=== PATIENT | female | born 1955 | race Caucasian/White ===

== ENCOUNTER 2023-09-25 13:08 | Inpatient (IN) | payer MEDICARE, OTHER ==
[~2023-09-25] VITALS: Ht 165.1 cm; Wt 72.7 kg
[2023-09-25] VITALS (13 sets, daily range): BP systolic 90–174; BP diastolic 45–78; TEMP 98; O2SAT 84–98
[2023-09-25 14:15] LABS: HEMATOCRIT 32.2 % (36.0-47.0); HEMOGLOBIN 10.6 g/dl (12.0-15.5); MEAN CORPUSCULAR HEMOGLOBIN 36.2 pg (27.0-33.0); MEAN CORPUSCULAR HGB CONC 32.9 g/dl (32.0-36.5); MEAN CORPUSCULAR VOLUME 109.9 fl (80.0-96.0); PLATELET COUNT, AUTOMATED 102 10^3/uL (150-450); RED BLOOD COUNT 2.93 10^6/uL (4.00-5.40); WHITE BLOOD COUNT 12.7 10^3/uL (4.0-10.0)
[2023-09-25] MEDS: ACETAMINOPHEN 325 MG TAB PO ONE (14:15)
[2023-09-25 14:28] LABS: ALBUMIN 2.7 G/DL (3.2-5.2); ALKALINE PHOSPHATASE 134 U/L (46-116); ALT/SGPT 25 U/L (7.0-40); AST/SGOT 26 U/L (<34); BILIRUBIN,DIRECT 2.8 MG/DL (<0.4); BILIRUBIN,TOTAL 4.5 MG/DL (0.3-1.2); BLOOD UREA NITROGEN 20 MG/DL (9-23); CALCIUM LEVEL 7.9 MG/DL (8.3-10.6); CARBON DIOXIDE LEVEL 25 MMOL/L (20-31); CHLORIDE LEVEL 106 MMOL/L (98-107); GLOMERULAR FILTRATION RATE > 60.0 (>39); GLUCOSE, FASTING 94 MG/DL (74-106); POTASSIUM SERUM 3.4 MMOL/L (3.5-5.1); SODIUM LEVEL 137 MMOL/L (136-145); TOTAL PROTEIN 5.3 G/DL (5.7-8.2)
[2023-09-25 14:31] LABS: THYROID STIMULATING HORMONE 0.208 uIU/ML (0.55-4.78)
[2023-09-25 14:35] LABS: PROCALCITONIN 0.69 ng/ml
[2023-09-25 14:46] LABS: ATYPICAL LYMPH 2 % (0-5); BASOPHILS 1 % (0-1); LYMPHOCYTES 4 % (16-44); METAMYELOCYTES 2 % (0-0); MONOCYTES 8 % (0-5); MYELOCYTES 1 % (0-0); NEUTROPHILS 72 % (28-66)
[2023-09-25 14:48] LABS: ANISOCYTOSIS 1+
[2023-09-25 14:49] LABS: PLATELET ESTIMATE DECREASED (NORMAL)
[2023-09-25] MEDS ORDERED: ISOVUE-370 76% 100ML VIAL As Ordered ONE (14:50)
[2023-09-25] MEDS: NS 2,240 ML in IV 1 EA IV ONE (15:36)
[2023-09-25] MEDS: cefTRIAXone SOD 2 GM in D5W MINI-BAG PLUS 50 ML IV ONE (15:36)
[2023-09-25] MEDS: PIPERACILLIN/TAZOBACTAM SOD 4.5 GM in D5W MINI-BAG PLUS 50 ML IV ONE (16:28)
[2023-09-25] MEDS: GASTROGRAFIN SOLUTION 30ML PO SCH (17:07)
[2023-09-25] MEDS: HYDROCORTISONE 100MG/2ML VIAL IV ONE (18:53)
[2023-09-25] MEDS: NOREPINEPHRINE 4MG IN D5 250ML 4 MG in IV 1 EA IV SCH (19:00)
[2023-09-25] MEDS: POTASSIUM CHLORIDE 10MEQ SR TABLET PO ONE ×2 (20:28→21:28)
[2023-09-25] MEDS: LR 1,000 ML IV SCH (20:28)
[2023-09-25] MEDS ORDERED: APIXABAN 5 MG TAB (ELIQUIS) PO SCH (21:00)
[2023-09-25] MEDS: ENOXAPARIN 80MG/0.8ML SYRINGE (J1650 PER 10MG) SC ONE (21:28)
[2023-09-25] MEDS: PIPERACILLIN/TAZOBACTAM SOD 4.5 GM in D5W MINI-BAG PLUS 50 ML IV SCH (21:29)
[2023-09-26] VITALS (27 sets, daily range): BP systolic 91–125; BP diastolic 50–81; TEMP 97.3–98.7; O2SAT 90–97
[2023-09-26] MEDS: LR 1,000 ML IV SCH ×2 (00:46→11:20)
[2023-09-26 05:00] LABS: HEMATOCRIT 30.1 % (36.0-47.0); HEMOGLOBIN 9.8 g/dl (12.0-15.5); MEAN CORPUSCULAR HEMOGLOBIN 36.2 pg (27.0-33.0); MEAN CORPUSCULAR HGB CONC 32.6 g/dl (32.0-36.5); MEAN CORPUSCULAR VOLUME 111.1 fl (80.0-96.0); RED BLOOD COUNT 2.71 10^6/uL (4.00-5.40); WHITE BLOOD COUNT 9.1 10^3/uL (4.0-10.0)
[2023-09-26 05:01] LABS: PLATELET COUNT, AUTOMATED 90 10^3/uL (150-450)
[2023-09-26] MEDS: LEVOTHYROXINE 125MCG TABLET (0.125MG) PO SCH (05:14)
[2023-09-26 05:34] LABS: ALBUMIN 2.3 G/DL (3.2-5.2); ALKALINE PHOSPHATASE 123 U/L (46-116); ALT/SGPT 23 U/L (7.0-40); AST/SGOT 37 U/L (<34); BILIRUBIN,TOTAL 3.1 MG/DL (0.3-1.2); BLOOD UREA NITROGEN 16 MG/DL (9-23); CALCIUM LEVEL 7.3 MG/DL (8.3-10.6); CARBON DIOXIDE LEVEL 18 MMOL/L (20-31); CHLORIDE LEVEL 112 MMOL/L (98-107); CREATININE FOR GFR 0.64 MG/DL (0.55-1.30); GLOMERULAR FILTRATION RATE > 60.0 (>39); GLUCOSE, FASTING 113 MG/DL (74-106); MAGNESIUM LEVEL 1.5 MG/DL (1.8-2.4); PHOSPHORUS LEVEL 2.8 MG/DL (2.4-5.1); POTASSIUM SERUM 4.8 MMOL/L (3.5-5.1); SODIUM LEVEL 139 MMOL/L (136-145); TOTAL PROTEIN 4.6 G/DL (5.7-8.2)
[2023-09-26 05:52] LABS: ANISOCYTOSIS 1+; ATYPICAL LYMPH 1 % (0-5); LYMPHOCYTES 7 % (16-44); MONOCYTES 5 % (0-5); MYELOCYTES 1 % (0-0); NEUTROPHILS 86 % (28-66); PLATELET ESTIMATE DECREASED (NORMAL)
[2023-09-26] MEDS ORDERED: DAPS100T22 PO (06:01)
[2023-09-26] MEDS ORDERED: OMEP40CA5 PO (06:01)
[2023-09-26] MEDS ORDERED: FURO20TA2 PO (06:01)
[2023-09-26] MEDS ORDERED: COLC0.6T47 PO (06:01)
[2023-09-26] MEDS ORDERED: METO50TA7 PO (06:01)
[2023-09-26] MEDS ORDERED: ALEN70TA82 PO (06:03)
[2023-09-26] MEDS ORDERED: [UNRECOGNIZED DRUG - CODE] SC (06:10)
[2023-09-26] MEDS ORDERED: FOLI1TAB11 PO (06:10)
[2023-09-26] MEDS ORDERED: SYNT125T PO (06:10)
[2023-09-26] MEDS ORDERED: SYMB16INH INH (06:10)
[2023-09-26] MEDS ORDERED: PRED5TA PO (06:10)
[2023-09-26] MEDS ORDERED: VARE0.03 NARES (06:10)
[2023-09-26] MEDS ORDERED: HOME MED LIST COMPLETE! XX SCH (06:10)
[2023-09-26] MEDS ORDERED: ELIQ5TAB PO (06:10)
[2023-09-26] MEDS: MAG SULF 1GM/100ML (MAG RUN) 1 GM in IV 1 EA IV SCH (06:32)
[2023-09-26] MEDS: PANTOPRAZOLE 40MG VIAL IV SCH (07:40)
[2023-09-26] MEDS: HYDROCORTISONE 100MG/2ML VIAL IV SCH ×2 (07:41→21:04)
[2023-09-26] MEDS: ENOXAPARIN 40MG/0.4ML SYRINGE (J1650 PER 10MG) SC SCH (07:41)
[2023-09-26] MEDS ORDERED: LOPERAMIDE 2 MG CAPLET PO PRN (10:35)
[2023-09-26] MEDS: LOPERAMIDE 2 MG CAPLET PO ONE (11:19)
[2023-09-26 11:52] LABS: LDH LACTATE DEHYDROGENASE 358 U/L (120-246)
[2023-09-26] MEDS ORDERED: PILL CUTTER 1 EACH XX PRN (11:55)
[2023-09-26 12:01] LABS: VITAMIN B12 LEVEL 930 PG/ML (211-911)
[2023-09-26 12:10] LABS: FOLATE 14.6 NG/ML (>5.4)
[2023-09-26] MEDS: SYMBICORT 160/4.5MCG INHALER 6GM INH SCH (13:30)
[2023-09-26] MEDS: FOLIC ACID 1MG TAB PO SCH (13:38)
[2023-09-26] MEDS: COLCHICINE 0.6 MG TABLET PO SCH (13:39)
[2023-09-26 15:41] LABS: C REACTIVE PROTEIN QUANTITATIV 13.5 MG/DL (<1.0)
[2023-09-26 15:50] LABS: PROCALCITONIN 0.59 ng/ml
[2023-09-26] MEDS ORDERED: DAPSONE 100 MG TAB PO SCH (21:00)
[2023-09-26] MEDS ORDERED: VARENICLINE TARTRATE SCH (21:00)
[2023-09-26] MEDS: APIXABAN 5 MG TAB (ELIQUIS) PO SCH (21:03)
[2023-09-26] MEDS: METOPROLOL TART 50 MG TAB PO SCH (21:04)
[2023-09-27] VITALS (7 sets, daily range): BP systolic 103–181; BP diastolic 58–85; TEMP 97.3–98; O2SAT 98–99
[2023-09-27 04:59] LABS: BASO % 0.3 % (0.0-1.0); EOS % 0.2 % (0.0-3.0); HEMATOCRIT 27.9 % (36.0-47.0); HEMOGLOBIN 9.2 g/dl (12.0-15.5); LYMPH # 0.5 10^3/uL (1.5-5.0); MEAN CORPUSCULAR HEMOGLOBIN 36.1 pg (27.0-33.0); MEAN CORPUSCULAR VOLUME 109.4 fl (80.0-96.0); MONO # 0.9 10^3/uL (0.0-0.8); MONO % 10.3 % (2.0-8.0); NEUTROPHILS % 79.6 % (36.0-66.0); PLATELET COUNT, AUTOMATED 130 10^3/uL (150-450); RED BLOOD COUNT 2.55 10^6/uL (4.00-5.40); WHITE BLOOD COUNT 8.8 10^3/uL (4.0-10.0)
[2023-09-27 05:11] LABS: ALBUMIN 2.3 G/DL (3.2-5.2); ALKALINE PHOSPHATASE 115 U/L (46-116); ALT/SGPT 21 U/L (7.0-40); AST/SGOT 22 U/L (<34); BILIRUBIN,TOTAL 1.9 MG/DL (0.3-1.2); BLOOD UREA NITROGEN 16 MG/DL (9-23); CALCIUM LEVEL 8.1 MG/DL (8.3-10.6); CARBON DIOXIDE LEVEL 20 MMOL/L (20-31); CHLORIDE LEVEL 111 MMOL/L (98-107); CREATININE FOR GFR 0.69 MG/DL (0.55-1.30); GLOMERULAR FILTRATION RATE > 60.0 (>39); GLUCOSE, FASTING 105 MG/DL (74-106); POTASSIUM SERUM 3.9 MMOL/L (3.5-5.1); SODIUM LEVEL 140 MMOL/L (136-145); TOTAL PROTEIN 4.6 G/DL (5.7-8.2)
[2023-09-27] MEDS: MIDODRINE 5 MG TAB PO SCH (08:16)
[2023-09-27] MEDS: FUROSEMIDE 20MG/2ML VIAL IV ONE (09:17)
[2023-09-27] MEDS ORDERED: LevoFLOXacin 750 MG TABLET PO ONE (11:25)
[2023-09-27] MEDS ORDERED: LEVO112T2 PO (11:36)
[2023-09-27] MEDS ORDERED: LEVO1TAB40 PO (11:36)
[2023-09-27] MEDS: LevoFLOXacin 750 MG TABLET PO ONE (13:39)
== END 2023-09-27 13:45 | disposition home or self-care (01) | DRG 871 ==
LOC: EDBD 13:08 → M ED 13:08 → M ED INP 18:16 → M ICU 20:53
PROVIDERS: ADMIT Internal Medicine Pulmonary Disease; ATTEND Internal Medicine
PROC: B246ZZZ Ultrasonography of Right and Left Heart (ICD-10-PCS; principal; 2023-09-26)
DX: A41.9 Sepsis, unspecified organism (principal); R65.21 Severe sepsis with septic shock; R57.1 Hypovolemic shock; J18.9 Pneumonia, unspecified organism; E27.2 Addisonian crisis; I50.32 Chronic diastolic (congestive) heart failure; J96.11 Chronic respiratory failure with hypoxia; E87.20 Acidosis, unspecified; L12.0 Bullous pemphigoid; J81.1 Chronic pulmonary edema; M32.9 Systemic lupus erythematosus, unspecified; M35.00 Sjogren syndrome, unspecified; I27.20 Pulmonary hypertension, unspecified; M81.0 Age-related osteoporosis without current pathological fracture; E89.0 Postprocedural hypothyroidism; I48.91 Unspecified atrial fibrillation; E87.6 Hypokalemia; D53.9 Nutritional anemia, unspecified; R19.7 Diarrhea, unspecified; E83.42 Hypomagnesemia; I35.0 Nonrheumatic aortic (valve) stenosis; J45.909 Unspecified asthma, uncomplicated; K21.9 Gastro-esophageal reflux disease without esophagitis; E78.5 Hyperlipidemia, unspecified; E86.0 Dehydration; R53.81 Other malaise; D69.6 Thrombocytopenia, unspecified; L89.152 Pressure ulcer of sacral region, stage 2; Z90.49 Acquired absence of other specified parts of digestive tract; Z87.891 Personal history of nicotine dependence; Z79.890 Hormone replacement therapy; Z79.899 Other long term (current) drug therapy; Z99.81 Dependence on supplemental oxygen; Z79.01 Long term (current) use of anticoagulants; Z88.0 Allergy status to penicillin; Z88.8 Allergy status to other drugs, medicaments and biological substances; Z79.52 Long term (current) use of systemic steroids; T38.0X5A Adverse effect of glucocorticoids and synthetic analogues, initial encounter